=== PATIENT | male | born 1980 | race Caucasian/White ===

== ENCOUNTER → 2024-03-22 06:21 | Day surgery (SDC) | payer BC, SELFPAY | LOC: GI 06:21 | PROVIDERS: ATTENDING PHYSICIAN Surgery | DX: K62.5 Hemorrhage of anus and rectum (principal) | CPT/HCPCS: 45378 ==

== ENCOUNTER → 2024-04-04 16:00 | Outpatient (REF) | payer BC, SELFPAY ==
[2024-04-09 09:04] LABS: HPV, High Risk Not Detected; HPV, High Risk Source Anal
== END ==
LOC: CLAB 16:00
PROVIDERS: ATTENDING PHYSICIAN Surgery
DX: Z86.19 Personal history of other infectious and parasitic diseases (principal)
CPT/HCPCS: 87624; 88112

== ENCOUNTER 2024-04-11 17:47 | Emergency (ER) | payer BC, SELFPAY ==
[2024-04-11 17:50] VITALS: BP 141/81
--- NOTE | 2024-04-11 18:52 | ED.MUSCINJ ---
HPI-Injury
General
Chief Complaint: Musculo-Skeletal Complaint
Source: patient
Exam Limitations: none
Time Seen by Provider: 04/11/24 18:42
Nursing documentation reviewed up to this point in time: agreed with
History of Present Illness-Injury
Is this injury a work related problem?: No
Is pt an associate of [facility]?: No
Initial Injury comments:
Accidentally hit by ball. Complains of pain and swelling to right ant. ankle. Injury occurred just [employer].
Past History
Past History
ED Past Medical History: GERD, Hypercholesterolemia and Other (RCA aneurysm, Psoriasis, )
ED Past Surgical History: Other (Hernia repair right inguinal at age 5)
Patient has exhibited threatening behavior?: No
Social History
Tobacco: Non-smoker
Alcohol: Occasional
Drug: None
Personal:
Living: with family
Employment: Employed
Family History
Family History: Negative Early CAD
Review of Systems
Review of Systems
All Other Systems: ROS reviewed and negative except as documented in HPI and ROS
Constitutional: Reports no symptoms
Respiratory: Reports no symptoms
Cardiac: Reports no symptoms
ABD/GI: Reports no symptoms
Musculoskeletal: Reports joint pain (Pain right ant. anklke)
Skin: Reports other (Hematoma right ant. ankle)
Neurological: Reports no symptoms
Psychiatric: Reports no symptoms
Musculoskeletal Injury Exam
Musculoskeletal Injury Exam
Right Anterior Ankle:
Pain with Movement?: Moderate
Tender to palpation?: Moderate
Soft tissue swelling?: Moderate
External deformity and angulation?: None
Joint effusion?: None
Contusion?: Moderate
Hematoma-local bleeding into tissue?: Moderate
Strain- Sprain- Tear (Connective tissue injury)?: None
Crepitus with movement?: No
Joint instability?: No
Malalignment/deformity?: No
Range of motion: Limited
Capillary Refill: normal
Normal distal neurovascular exam?: Yes
Phy Exam
General Physical Exam
General Presentation: well appearing and no apparent distress
General age: appears stated age
General Skin: warm and dry
General Habitus: normal
General Mental: alert
General Hydration: appears well hydrated
Musculoskeletal Exam
Musculoskeletal Exam: neuro vasc intact
Skin Exam
Skin Exam: normal color, warm/dry and no rash
Psychiatric Exam
Psychiatric Exam: normal mood/affect
Injury Course
Orders/Labs/Results
Orders:
Orders
04/11/24 17:52
Tib/Fib, Right 2 View [CR Leg Tibia/fibula Right 2 Vw] Urgent
Comment:
Reason For Exam: swelling after hit with a baseball
04/11/24 18:49
Amanuel Wrap Right-Treatment ONCE
*Radiology
Radiology exam reviewed: radiology read reviewed
*Pulse Oximetry
Patient hypoxic: no
*Critical Care Note
Total Time (30-74mins, 75-104mins- exclusive of procedures): Not Applicable
ED Attending Note
-
Portions of this chart may have been created with voice recognition software.� Occasional wrong word or��sound alike� substitutions may have occurred due to the inherent limitations of voice recognition software.
Discharge Plan
Departure
Patient Disposition: Home (Routine Discharge)
Date of Disposition: 04/11/24
Time of Disposition: 18:50
Patient with high blood pressure during this ER visit?: No
Condition: Good
Covid-19: Not Applicable
Discharge Problem:
Hematoma of ankle
Instructions: Contusion (DC), Ibuprofen, Hematoma, RICE Therapy
Prescriptions:
No Action
loratadine 10 MG tablet
1 dose PO DAILY
omeprazole 20 MG capsule,delayed release(DR/EC)
20 mg PO DAILY
rosuvastatin [Crestor] 10 MG tablet
10 mg PO DAILY
Activity Restrictions/Additional Instructions:
Follow up with your family doctor
Interventions
Interventions:
*Risk Screen - Suicide Last Done: 04/11/24 17:50
*General Assessment Last Done: 04/11/24 18:10
*Neglect/Abuse Screening Last Done: 04/11/24 18:12
*Nursing Disposition Last Done: 04/11/24 19:05
ED-Musculoskeletal Assessment Last Done: 04/11/24 18:09
Discharge Date and Time
Discharge Date/Time: 04/11/24 19:05
Print Language: NEPALESE
== END 2024-04-11 19:05 | disposition home or self-care (01) ==
LOC: EMR 17:47
PROVIDERS: EMERGENCY PHYSICIAN Emergency Medicine; FAMILY PHYSICIAN Internal Medicine
DX: S90.01XA Contusion of right ankle, initial encounter (principal); W21.03XA Struck by baseball, initial encounter; K21.9 Gastro-esophageal reflux disease without esophagitis; E78.00 Pure hypercholesterolemia, unspecified; L40.9 Psoriasis, unspecified
CPT/HCPCS: 99283; 73590

== ENCOUNTER → 2024-07-01 08:14 | Outpatient (REF) | payer BC, SELFPAY ==
[2024-07-01 10:21] LABS: % Basophils 0.4 % (0-2); % Eosinophils 2.7 % (0-6); % Immature Granulocytes 0.5 % (0-0.5); % Lymphocytes 19.8 % (20.5-51.1); % Monocytes 7.5 % (1.7-9.3); % Neutrophils 69.1 % (42.2-75.2); Absolute Basophils 0.1 10^3/uL (0-0.2); Absolute Eosinophils 0.3 10^3/uL (0-0.7); Absolute Immature Granulocytes 0.1 10^3/uL (0-0.05); Absolute Lymphocytes 2.2 10^3/uL (1.2-3.4); Absolute Monocytes 0.9 10^3/uL (0.1-0.6); Absolute Neutrophils 7.8 10^3/uL (1.4-6.5); Hematocrit 45.6 % (39.0-52.0); Hemoglobin 15.4 g/dL (13.0-18.0); Mean Corp Hgb Conc. 33.8 g/dL (33.0-37.0); Mean Corpuscular Hgb 30.8 pg (27.0-31.0); Mean Corpuscular Volume 91.2 fL (80.0-94.0); Mean Platelet Volume 9.5 fL (7.4-10.4); Nucleated Red Blood Cells % 0 % (-); Platelet Count 217 10^3/uL (130-400); Red Cell Dist. Width 12.7 % (11.5-14.5); White Blood Cell Count 11.3 10^3/uL (4.8-10.8)
[2024-07-01 10:47] LABS: Albumin 4.7 g/dl (3.5-5.0); Carbon Dioxide 33 mmol/L (22-30); Chloride 103 mmol/L (98-107)
[2024-07-01 10:58] LABS: ALT (SGPT) 27 U/L (0-50); AST (SGOT) 25 U/L (17-59); Alkaline Phosphatase 54 U/L (38-126); Blood Urea Nitrogen 22 mg/dl (9-20); Glucose 95 mg/dl (70-99); HDL Cholesterol 74 mg/dl; LDL Cholesterol, Calculated 110 mg/dl; Potassium 4.8 mmol/L (3.5-5.1); Sodium 142 mmol/L (135-145); Total Bilirubin 0.7 mg/dl (0.2-1.3); Total Cholesterol 201 mg/dl (50-199); Total Protein 7.3 g/dl (6.3-8.2); Triglyceride 85 mg/dl (10-149); Very Low Density Lipoprotein 17 mg/dl (0-30); eGFR > 60.00
[2024-07-01 11:03] LABS: Glycohemoglobin (HgbA1c) 5.2 % (4.0-5.6)
[2024-07-01 11:15] LABS: TSH Reflex To Free T4 1.36 uIU/ml (0.47-4.68)
== END ==
LOC: HWLAB 08:14
DX: Z00.01 Encounter for general adult medical examination with abnormal findings (principal); I25.41 Coronary artery aneurysm; K21.9 Gastro-esophageal reflux disease without esophagitis; R73.09 Other abnormal glucose
CPT/HCPCS: 36415; 80053; 80061; 83036; 84443; 85025

== ENCOUNTER → 2025-05-04 17:03 | Outpatient (REF) | payer BC, SELFPAY ==
[2025-05-12 17:06] LABS: HPV, High Risk Not Detected; HPV, High Risk Source Anal
== END ==
LOC: CLAB 17:03
PROVIDERS: ATTENDING PHYSICIAN Surgery
DX: R85.610 Atypical squamous cells of undetermined significance on cytologic smear of anus (ASC-US) (principal)
CPT/HCPCS: 87624; 88112

== ENCOUNTER 2025-06-23 06:19 | Day surgery (SDC) | payer BC, SELFPAY ==
[2025-06-23 08:35] VITALS: BMI 28.5
[2025-06-23 08:45] VITALS: BP 108/67
[2025-06-23 08:53] VITALS: BMI 28.5
[2025-06-23] MEDS: NORMOSOL-R/PLASMALYTE-A 1000 IV (08:57)
[2025-06-23 11:15] VITALS: BP 108/63
--- NOTE | 2025-06-23 11:17 | W.IMMPOSTOP ---
Surgical Immed Post Op Note
-
Primary Surgeon: Heron Dexter MD
Assisting Surgeon: None
Pre-op Diagnosis: Anal fissures
Post-op Diagnosis: Anal fissures
Procedure Performed: Exam under anesthesia, biopsy of anal fissures, fissurectomy, bilateral pudendal nerve block
Anesthesia Type: Sedation with local
Specimen / Cultures:
1. Left lateral fissure biopsy
2. Anterior midline fissure biopsy
3. Right anterior fissure biopsy
4. Posterior midline fissure biopsy
Estimated Blood Loss: 5 mL
Complications: None
Operative Findings: 4 fissures noted in the left lateral, anterior midline, right anterior and posterior midline positions; the fissures had rolled edges and were located at the anal verge; no other concerning pathology; no concerning hemorrhoids,
masses or proctitis; performed biopsies of each fissure and fulgurated the fissure;
--- NOTE | 2025-06-23 11:21 | OR.RPT ---
Operative Report
Operative Report
DATE OF OPERATION: 06/23/2025
SURGEON: Heron Dexter MD
PREOPERATIVE DIAGNOSIS: Multiple anal fissures
POSTOPERATIVE DIAGNOSIS: Multiple anal fissures
OPERATION: Exam under anesthesia, biopsy of anal fissures, fissurectomy, bilateral pudendal nerve block
ASSISTANTS:
1. None
ANESTHESIA: Sedation with local
ESTIMATED BLOOD LOSS: 5 mL
FINDINGS:
1. Anal fissures noted in the left lateral, anterior midline, right anterior and posterior midline positions
2. No masses, proctitis or other concerning pathology
SPECIMENS:
1. Left lateral fissure biopsy
2. Anterior midline fissure biopsy
3. Right anterior fissure biopsy
4. Posterior midline fissure biopsy
DRAINS: None
COMPLICATIONS: None
INDICATIONS: The patient is a 44-year-old male with a history of an anal fissure several years ago and presented for pain and spotting of blood. There was no fissure at that time, but there was tearing noted with the anoscopy. This improved with
nonoperative measures. However, he was noted to have somewhat thickened and weak perianal skin. He underwent anal Pap, which showed ASCUS, HPV negative. This was repeated 1 year later and remained the same. We proceeded with high-resolution
anoscopy, which did not show any concerning lesions along the squamocolumnar junction. However, there was significant tearing along the anal verge, about 7-8 tears were noted. It was unclear if these were related to tearing with anoscopy or if
they were there prior to the exam, but there were rolled borders with some of the tears, concerning for subacute vs chronic presence. Therefore, the patient was recommended to have surgery to undergo biopsy of these fissures. The operation was
discussed with the patient in detail, including the risks, benefits and alternatives. Risks described included, but not limited to bleeding, infection, urinary retention, damage to nearby structures such as the anal sphincter, recurrence, and
anesthetic risks. The patient understood and agreed to proceed. The consent was signed and placed in the chart.
PROCEDURE IN DETAIL: The patient was taken to the operating room. Sequential compression devices were placed bilaterally. The patient was placed on the operating table in prone position. Sedation was commenced without complication. Two seat belts
were secured around the legs and upper back. The buttocks were taped apart. The perineum was shaved, prepped and draped in the usual fashion. A time-out was performed verifying the correct patient, procedure, operative site, positioning, and
special equipment.
Local anesthesia used was a mixture of 30 mL of 0.25% Marcaine with epinephrine, 30mL of 1% lidocaine plain and 0.6 mg of dexamethasone. 40 mL was injected perianally at the beginning of the case. The anorectal exam was performed assessing all four
quadrants of the anal canal using Hill-Beebe retractors. With using the small Hill�Beebe, there were noted to be 4 fissures along the anal verge in the left lateral, anterior midline, right anterior and posterior midline. These fissures had
more of a chronic appearance with rolled edges, but no sentinel piles. There was no other concerning pathology. Specifically, there were no masses, there was no proctitis and the hemorrhoids were physiologic in size without irritation or bleeding.
There was no lichenification of the perianal skin, but there was a slight whitish hue concerning for possibly chronic irritation. The sphincter tone was noted to be somewhat elevated and the large Hill�Beebe was unable to be accommodated. It
was difficult to discern definitively if there may have been a slight stenosis related to a fibrotic band around the anal verge. After the manipulation with the retractors, 2 small additional tears were noted.
Each of the four fissures present prior to the exam were biopsied with forceps and Metzenbaum scissors. The fissures were fulgurated with electrocautery for both hemostasis and to encourage wound healing. The remaining 20 mL of local were injected.
5 mL was injected bilaterally for a pudendal nerve block. 10 mL was injected around the surgical site and perianally. Hemostasis was reassessed once more using the small Hill-Beebe and was confirmed. At this point, the procedure was complete.
All needle, sponge and instrument counts were correct. The patient tolerated the procedure well and was transferred to the recovery room in stable condition with gauze dressing in place secured with silk tape.
DICTATED BY: Heron Dexter MD
[2025-06-23] MEDS: MOTRIN 600 MG PO (12:33)
== END 2025-06-23 12:40 | disposition home or self-care (01) ==
LOC: SDS 06:19
PROVIDERS: ATTENDING PHYSICIAN Surgery
DX: K60.2 Anal fissure, unspecified (principal)
CPT/HCPCS: 46200; 88305